=== PATIENT | male | born 1990 | race Caucasian/White ===

== ENCOUNTER 2019-09-13 13:01 | Outpatient (CLI) | payer OTHER, SELFPAY ==
--- NOTE | ~2019-09-13 | CT_ITS ---
EXAMINATION: CT shoulder RT w con DATE: 09/13/2019 14:14 INDICATION: Injury of right glenoid labrum. Repeated shoulder dislocations. TECHNIQUE: Computed tomography (CT) of the right shoulder was performed without intravenous contrast after intra-articular injection of contrast (CT arthrogram). Automated exposure control and iterative reconstruction technique were employed. The dose-length product was 1414.15 mGy-cm. COMPARISON: None FINDINGS: Bone alignment is normal. No fracture. The acromion undersurface is curved in morphology (t ype II). The glenohumeral joint cartilage is normal. The glenoid labrum is normal. The biceps tendon is in bicipital groove. The acromioclavicular joint demonstrates tiny osteophytes. There is no asymme tric fatty atrophy of the rotator cuff muscle bellies. IMPRESSION: 1. Normal glenoid labrum. Reviewed, dictated and finalized at location A. ARCH & ANALYTICS MANAGER IMPRESSION: 1. Normal glenoid labrum.
--- NOTE | ~2019-09-13 | XR_ITS ---
EXAMINATION: XR fl inj shoulder RT - MR/CT EXAM DATE: 09/13/2019 14:06 INDICATION: Chronic right shoulder pain. History dislocations. TECHNIQUE: A time-out was performed to verify the patient's name, date of , and procedure to b e performed. The procedure including the risks, benefits and alternatives were discussed with the pat ient. Risks discussed included bleeding and infection. The patient understood the risks and agreed to proceed. The skin overlying the right shoulder joint was prepped and draped in usual sterile fashion . Anesthetic was administered with 3 milliliters 1% lidocaine subcutaneously. A 22 G needle was adv anced under fluoroscopic guidance into the joint. A total of 5 mL Omnipaque 240 solution, 2.5 mL s terile saline solution, 2.5 mL 1% lidocaine solution were injected into the joint. The needle was re moved and the entry site was cleaned and dressed. There were no immediate complications. The DAP fo r this procedure was 0. 1 4 Gycm2. The procedure was performed on 09/13/2019. FINDINGS: Real-time fluoroscopy demonstrates the needle and contrast in the right shoulder joint. Preprocedure right shoulder pain was 5/10. Postprocedure right shoulder pain was 1/10. IMPRESSION: Successful right shoulder joint injection. Reviewed, dictated and finalized at location A. RNMENT RELATIONS MANAGER
== END 2019-09-13 13:02 | disposition home or self-care (01) ==
PROVIDERS: Visit Provider Internal Medicine
DX: S49.91XA Unspecified injury of right shoulder and upper arm, initial encounter (principal); M75.41 Impingement syndrome of right shoulder
CPT/HCPCS: 23350; 73201; 77002

== ENCOUNTER 2023-09-26 13:09 | Outpatient (CLI) | payer OTHER, SELFPAY ==
--- NOTE | ~2023-09-26 | CT_ITS ---
EXAMINATION: CT shoulder LT w con DATE: 09/26/2023 14:26 INDICATION: Chronic left shoulder pain TECHNIQUE: High resolution computed tomography (CT) arthrogram of the left shoulder was performed wit h intra-articular contrast but without intravenous contrast. Details of the contrast mixture and inje ction have been dictated separately. Additional sagittal and coronal reconstructions were performed. Automated exposure control and iterative reconstruction technique were employed. The dose-length prod uct was 741.29 mGy-cm. COMPARISON: None FINDINGS: Bone alignment is normal. No fracture. Glenohumeral cartilage appears appears normal. There is subtle contrast extending into a small tear at the 11:00 position of the posterosuperior glenoid labrum. Re mainder of the labrum appears normal. Smooth articular surface to the rotator cuff with no evident te ar. There is minimal amount of contrast imbibition in the cephalad aspect of the subscapularis tendon likely representing minimal extravasation at the site of injection. Long head of the biceps tendon a ppears unremarkable. Mild acromioclavicular osteoarthritis. The musculature of the rotator cuff and s houlder girdle appear normal. No pathologically enlarged left axillary or hilar lymphadenopathy. Resp iratory motion in the left lung which appears clear. IMPRESSION: 1. Small tear at the 11:00 position of the posterosuperior glenoid labrum. Reviewed, dictated and finalized at location A. ETIC CONSULTANT
--- NOTE | ~2023-09-26 | CT_ITS ---
EXAMINATION: CT shoulder RT w con DATE: 09/26/2023 14:47 INDICATION: Chronic bilateral shoulder pain TECHNIQUE: High resolution computed tomography (CT) arthrogram of the right shoulder was performed wi th intra-articular contrast but without intravenous contrast. Details of the joint injection have bee n dictated separately. Additional sagittal and coronal reconstructions were performed. Automated expo sure control and iterative reconstruction technique were employed. The dose-length product was 663.73 mGy-cm. COMPARISON: None FINDINGS: Bone alignment is normal. No fracture. Glenohumeral cartilage appears normal. Subtle linear contrast is seen along a tear at the 11:00-8:00 position posterior to posterior superior glenoid labrum. Mild acromioclavicular osteoarthritis. Long head of the biceps tendon appears unremarkable. Smooth articul ar surface to the rotator cuff with no evident tear. The musculature of the rotator cuff and shoulder girdle appear normal. No pathologically enlarged right axillary or hilar lymphadenopathy. Respirator y motion in the right lung which appears clear. IMPRESSION: 1. Tear at the posterior to posterior superior glenoid labrum. Reviewed, dictated and finalized at location A. ECTIONAL CAPTAIN
--- NOTE | ~2023-09-26 | XR_ITS ---
EXAMINATION: XR fl inj shoulder RT - MR/CT DATE: 09/26/2023 14:55 INDICATION: Bilateral shoulder pain TECHNIQUE: A time-out was performed to verify the patient's name, date of , and procedure to b e performed. The procedure including the risks, benefits, and alternatives was discussed with the pat ient. Risks discussed included bleeding and infection. The patient understood the risks and agreed to proceed. The skin overlying the rotator cuff interval of the right glenohumeral joint was prepped a nd draped in usual sterile fashion. Anesthetic was administered with 1% lidocaine subcutaneously. 12 mL of 1:1:1 mixture of sterile saline:Omnipaque 240:1% lidocaine was injected with intra-articular a dministration confirmed with intermittent fluoroscopy. The needle was removed and the entry site was cleaned and dressed. There were no immediate complications. Fluoroscopy exposure time was 0.2 minute s. The total number of images was 124. Total DAP was 0.901 mGycm^2 FINDINGS: Real-time fluoroscopy demonstrates the needle in the right glenohumeral joint. IMPRESSION: 1. Successful right glenohumeral joint injection of iodinated contrast for subsequent CT arthrogram w [facility] will be dictated separately. Reviewed, dictated and finalized at location A. [employer] PROGRAM MANAGER IMPRESSION: 1. Successful right glenohumeral joint injection of iodinated contrast for subs equent CT arthrogram which will be dictated separately.
--- NOTE | ~2023-09-26 | XR_ITS ---
EXAMINATION: XR fl inj shoulder LT - MR/CT DATE: 09/26/2023 14:51 INDICATION: Chronic bilateral shoulder pain TECHNIQUE: A time-out was performed to verify the patient's name, date of , and procedure to b e performed. The procedure including the risks, benefits, and alternatives was discussed with the pat ient. Risks discussed included bleeding and infection. The patient understood the risks and agreed to proceed. The skin overlying the rotator cuff interval of the left glenohumeral joint was prepped an d draped in usual sterile fashion. Anesthetic was administered with 1% lidocaine subcutaneously. A 22 G needle was advanced under fluoroscopic guidance into the joint. 12 mL of 1:1:1 mixture of steril e saline:Omnipaque 240:1% lidocaine was injected with interarticular administration confirmed with in termittent fluoroscopy. The needle was removed and the entry site was cleaned and dressed. There wer e no immediate complications. Fluoroscopy exposure time was 0.2 minutes. The total number of images w as 71. Total DAP was 0.627 Gycm^2 FINDINGS: Real-time fluoroscopy demonstrates the needle in the left glenohumeral joint. IMPRESSION: 1. Successful left glenohumeral joint injection of an iodinated contrast mixture for subsequent CT ar throgram which will be dictated separately. Reviewed, dictated and finalized at location A. OR ACCOUNTANT BOOKKEEPER IMPRESSION: 1. Successful left glenohumeral joint injection of an iodinated contrast mixtur e for subsequent CT arthrogram which will be dictated separately.
== END 2023-09-26 13:10 | disposition home or self-care (01) ==
LOC: ANHIMG 13:10
PROVIDERS: Visit Provider Family Medicine Sports Medicine
DX: S43.431A Superior glenoid labrum lesion of right shoulder, initial encounter (principal); S43.432A Superior glenoid labrum lesion of left shoulder, initial encounter; X58.XXXA Exposure to other specified factors, initial encounter; M25.311 Other instability, right shoulder; M25.312 Other instability, left shoulder
CPT/HCPCS: 23350; 73201; 77002; Q9966